=== PATIENT | female | born 1975 | race Hispanic/Latino ===

== ENCOUNTER 2016-07-25 06:31 | Emergency (ER) | payer OTHER ==
[~2016-07-25] VITALS: Ht 157.5 cm; Wt 92.7 kg
[~2016-07-25 06:31] MED LIST: ASPI-973 PO; CITA10TA14 PO; CITA10TA9 PO; CYCL10TA9 PO; GLYB2.5T4 PO; HYDR-4003 PO; HYDR50CA PO; INSU100V7 SUBQ; LISI-567 PO; LISI2.5T PO; METF500T4 PO; NAPR500T PO; NPR500T PO; ONDA8TAB10 PO; OXYC-474 PO; SIMV20TA4 PO; SIMV5TAB7 PO
--- NOTE | 2016-07-25 06:34 | ED.REPORT ---
HPI-Chest Pain 40 and Over Date of Service Jul 25, 2016 ED Provider: Dr. Mensah Patient is a 41 year old female with a hx of DM and HTN who reports to the ED complaining of chest pain onset 2 days ago. Patient had a URI two weeks ago which has led up to sudden onset non-productive cough and chest pain that has progressively worsened since. Pt rates pain at 7/10 severity located in the middle of her chest with no radiation. Pain is worse with inspiration and coughing and DayQuil helps to relieve symptoms. Pt c/o associates SOB and post nasal drip and has no history of GERD. Patient denies fever, chills, abdominal pain, vomiting, diaphoresis. Pt's child had influenza several weeks ago. Nursing Notes Stated Complaint: SOB/CHEST PAIN Nursing Notes Reviewed: Yes Allergies: Coded Allergies: No Known Allergies (Verified , 11/18/15) Scheduled Aspirin (Aspirin) 81 Mg Tablet 81 MG PO DAILY Citalopram (Citalopram) 10 Mg Tablet 10 MG PO DAILY Citalopram Hydrobromide (Celexa) Unknown Strength Tablet Unknown Dose PO DAILY Glyburide (Glyburide) Unknown Strength Tablet Unknown Dose PO BIDAC Glyburide (Glyburide) 2.5 Mg Tablet 2.5 MG PO BIDAC Insulin Glargine (Lantus U100 Insulin Vial) 100 Unit/Ml Vial 20 UNIT SUBQ HS Insulin Glargine (Lantus U100 Insulin Vial) 100 Unit/Ml Vial 20 UNIT SUBQ HS Lisinopril (Lisinopril) Unknown Strength Tablet Unknown Dose PO DAILY Lisinopril (Lisinopril) 20 Mg Tablet 20 MG PO DAILY Metformin (Metformin) 500 Mg Tablet 500 MG PO BID Metformin (Metformin) 500 Mg Tablet 500 MG PO BID Simvastatin (Simvastatin) Unknown Strength Tablet Unknown Dose PO HS Simvastatin (Simvastatin) 20 Mg Tablet 20 MG PO HS Scheduled PRN Benzonatate (Tessalon Perle) 100 Mg Capsule 100 MG PO TID PRN PRN For Cough Cyclobenzaprine (Cyclobenzaprine) 10 Mg Tablet 10 MG PO TID PRN PRN Spasm Hydrocodone-Acetaminophen 5-325 mg (Hydrocodone-Acetaminophen 5-325 mg) 1 Each Tablet 1 TABLET PO at night PRN PRN severe unrelenting pain Hydroxyzine Pamoate (Vistaril) 50 Mg Capsule 50 MG PO TID PRN PRN muscle relaxation Naproxen (Naprosyn) 500 Mg Tablet 500 MG PO BID PRN PRN For Pain Naproxen (Naproxen) 500 Mg Tab 500 MG PO BID PRN PRN For Pain Naproxen (Naproxen) 500 Mg Tab 500 MG PO BID PRN PRN For Pain Ondansetron ODT (Ondansetron ODT) 8 Mg Tab.rapdis 8 MG PO QID PRN PRN For Nausea Oxycodone (Roxicodone) 5 Mg Tablet 2.5-5 MG PO QID PRN PRN For Pain General Time Seen by MD: 06:33 Chief Complaint Chest pain Hx Obtained From: Patient Arrived By: Walk-in Sudden in Onset?: Yes Onset Occurred: 2 days ago Symptom Duration: Since onset Radiation: : Does not radiate Severity: Current: Mild Severity: Maximum: Mild Risk Factors PERC Rule Heart rate 100 or over PERC Result: One or more crit "Yes" Past Medical History Past Medical History Chronic cholecystitis Anxiety Depression Reports: Diabetes mellitus, GERD, Hyperlipidemia, Hypertension Past Surgical History Reports: , Cholecystectomy, Tonsillectomy Reports: Tubal ligation Family History Noncontributory Smoking History Never Smoker Social History Alcohol Use: Denies alcohol use Drug Use: Denies drug use Other Social History: Lives with children, Local resident 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 Ears / Nose / Throat: Reports: Nasal congestion Physical Exam Initial Vital Signs Vital Signs (First) Date Time Temp Pulse Resp B/P Pulse Ox O2 Delivery O2 Flow Rate FiO2 07/25/16 06:35 36.7 108 23 138/95 98 Room Air Initial VS: Reviewed Head / Eyes: Atraumatic, Normocephalic, PERRL ENT: Mucous membranes moist, Conjunctiva normal, No scleral icterus Neck: Supple, Non-tender, Full range of motion Skin: Warm, Dry, No cyanosis Neurologic: Alert, Oriented, Nonfocal Psychiatric: Mood/affect normal, Behavior normal, Normal thought content General/Constitutional: Awake, Alert Respiratory / Chest: Breath sounds NL, Breath sounds = bilat, No respiratory distress, No rales, No rhonchi, No wheezing focal sternal chest wall tenderness Cardiovascular: Heart rate NL, Regular rhythm, Heart sounds NL Abdomen: Atraumatic, Soft, Non-tender, No guarding, No rebound Interpretation & Diagnostics Negative for Influenza A & B Lab Results Interpretation Result Diagram: 07/25/16 0730 07/25/16 0730 Test 07/25/16 07:30 White Blood Count 8.9th/mm3 (3.8-10.1) Red Blood Count 4.56mil/mm3 (3.90-5.20) Hemoglobin 13.5g/dL (12.0-15.6) Hematocrit 39.0% (35.0-46.0) Mean Corpuscular Volume 85.5fL (81-100) Mean Corpuscular Hemoglobin 29.6pg (27.0-35.0) Mean Corpuscular Hemoglobin Concent 34.6% (32.0-37.0) Red Cell Distribution Width 12.8% (12.3-15.4) Platelet Count 370bil/L (150-400) Neutrophils (%) (Auto) 54.6% (40-74) Lymphocytes (%) (Auto) 37.9% (14-46) Monocytes (%) (Auto) 5.9% (4-12) Eosinophils (%) (Auto) 1.3% (0-5) Basophils (%) (Auto) 0.1% (0-3) D-Dimer < 0.5mg/L (<0.50) Sodium Level 138mEq/L (134-144) Potassium Level 4.2mEq/L (3.5-5.2) Chloride Level 100mEq/L (97-108) Carbon Dioxide Level 24mmol/L (18-29) Blood Urea Nitrogen 8mg/dL (6-24) Creatinine 0.33mg/dL (0.57-1.00) Estimat Glomerular Filtration Rate 315mL/min (>59) Glucose Level 316mg/dL (60-99) Calcium Level 8.6mg/dL (8.5-10.1) Magnesium Level 1.8mg/dL (1.6-2.6) Total Bilirubin 0.4mg/dL (0.0-1.2) Aspartate Amino Transf (AST/SGOT) 14U/L (0-50) Alanine Aminotransferase (ALT/SGPT) 14U/L (0-32) Alkaline Phosphatase 71U/L (25-150) Troponin T < 0.010ug/L (0.0-0.011) Total Protein 6.7g/dL (6.4-8.4) Albumin 3.7g/dL (3.4-5.0) ECG Interpretation Time: 06:40 Interpreted by: ED physician Normal ECG Interpretation: Normal sinus rhythm (88) X-Ray Chest Interpretation Chest Xray Interpretation: IMPRESSION: No acute process. Dictated by: Mely Lange M.D. on 07/25/2016 at 8:26 Approved by: Mely Lange M.D. on 07/25/2016 at 8:26 View: Portable Interpretation / Wet Read by: Interpret - Radiologist Re-Eval/Medical Decision Med Decision/Clinical Course Overall findings not consistent with acute coronary syndrome or pulmonary embolism, patient is given symptomatically relief and will be discharged with return precautions. Time of Eval: 09:10 Re-Evaluation/Progress Note: Pt rechecked. Informed pt of diagnosis of acute costochondritis and plan for treatment. Pt understands and agrees with plan. F/U and RTER warnings given. All questions addressed. Counseled Regarding: Diagnosis, Lab results, Need for follow-up, When/why to return to ED Discharge & Departure Primary Impression: Acute costochondritis Disposition: Home Discharge Condition All VS Reviewed: Yes Condition: Stable Additional Instructions: Thank you for entrusting us with your care today. You were diagnosed with acute costochondritis. You will be discharged with Naproxen for pain and tessalon perles for cough. You may also purchase an over the counter cough suppressant to aid with your symptoms. Please follow up with your primary care provider should your symptoms persist. It has been a pleasure participating in your care. Referrals: Shanon Johnson MD (PCP) Scribe Attestation Portion of this note were transcribed by Sandy Guillaume and Ami Berger. I, Dr. Mensah personally performed the history, physcial exam, and medical decision- making: I reviewed and confirmed the accuracy for the information in the transcribed note. Signed by: aldo Rodriguez, 07/18/16 0915 copies to: Shanon Johnson MD, Timothy S DO Jul 25, 2016 06:34 AMI BERGER Jul 25, 2016 07:15 Sandy Guillaume Jul 25, 2016 09:12
[2016-07-25 06:35] VITALS: BP 138/95; PULSE 108; RESP 23; O2SAT 98
[2016-07-25] MEDS ORDERED: Ketorolac 15 mg/mL Inj IVPUSH ONE (07:00)
[2016-07-25] MEDS ORDERED: HYDROcodone-APAP 5-325 mg Tablet PO ONE (07:00)
[2016-07-25 07:40] VITALS: BP 119/77; PULSE 87; RESP 22; O2SAT 94
[2016-07-25 07:52] LABS: BASOPHILS % (AUTO) 0.1 % (0-3); EOSINOPHILS % (AUTO) 1.3 % (0-5); MONOCYTES % (AUTO) 5.9 % (4-12); Mean Corpuscular Hemoglobin 29.6 pg (27.0-35.0); Mean Corpuscular Volume 85.5 fL (81-100); NEUTROPHILS % (AUTO) 54.6 % (40-74); Platelet Count 370 bil/L (150-400)
[2016-07-25 08:15] VITALS: BP 120/73; PULSE 89; RESP 13; O2SAT 93
[2016-07-25 08:26] LABS: Magnesium 1.8 mg/dL (1.6-2.6)
[2016-07-25 08:27] LABS: TROPONIN T < 0.010 ug/L (0.0-0.011)
--- NOTE | 2016-07-25 08:28 | DRSVH ---
PROCEDURE: X-RAY CHEST, TWO VIEWS ([id number]) INDICATIONS: cough, chest pain TECHNIQUE: 2 views of the chest were acquired. COMPARISON: [facility], CR, XR ABD ACUTE SERIES 3VW, 08/20/2015, 21:10. [facility], CR, CHEST 2VW, 12/10/2012, 21:40. [facility], CR, CHEST 2VW, 09/25/2006, 22:01. FINDINGS: Surgical changes and devices: None. Lungs and pleura: No pleural effusions or pneumothorax. Lungs are clear. Mediastinum: Mediastinal contours are normal. Heart size is normal. Bones and chest wall: No suspicious bony abnormalities. Soft tissues appear unremarkable. IMPRESSION: No acute process. Dictated by: Mely Lange M.D. on 07/25/2016 at 8:26 Approved by: Mely Lange M.D. on 07/25/2016 at 8:26
[2016-07-25] MEDS ORDERED: NPR500T PO (09:07)
[2016-07-25] MEDS ORDERED: BENZ-12 PO (09:07)
[2016-07-25 09:28] VITALS: BP 119/76; PULSE 96; RESP 14; O2SAT 94
[2016-07-25 09:30] VITALS: BP 119/76; PULSE 96; RESP 14; O2SAT 94
== END 2016-07-25 09:30 | disposition home or self-care (01) ==
LOC: SED 06:31
DX: M94.0 Chondrocostal junction syndrome [Tietze] (principal); I10 Essential (primary) hypertension; K21.9 Gastro-esophageal reflux disease without esophagitis; E78.5 Hyperlipidemia, unspecified; E11.9 Type 2 diabetes mellitus without complications; Z90.49 Acquired absence of other specified parts of digestive tract; Z79.82 Long term (current) use of aspirin; Z79.84 Long term (current) use of oral hypoglycemic drugs; Z79.4 Long term (current) use of insulin
CPT/HCPCS: 36415; 71020; 80053; 82948; 83735; 84484; 85025; 85379; 87804; 90791; 93005; 96374; 99285; J1885

== ENCOUNTER 2017-02-07 03:32 | Emergency (ER) | payer OTHER ==
[~2017-02-07] VITALS: Ht 157.5 cm; Wt 92.7 kg
[~2017-02-07 03:32] MED LIST changes: +BENZ-12 PO
[2017-02-07 03:38] VITALS: BP 121/87; PULSE 90; RESP 22; O2SAT 96
--- NOTE | 2017-02-07 03:50 | ED.REPORT ---
HPI-Extremity Problem Lower Date of Service Feb 07, 2017 ED Provider: Dr. 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 Pt is able to bend and flex the toe. Pain is exacerbated by movement. She is utd on her tetanus shot. Nursing Notes Stated Complaint: LEFT FOOT PAIN Chief Complaint: Laceration Nursing Notes Reviewed: Yes Allergies: Coded Allergies: No Known Allergies (Verified , 11/18/15) Scheduled Aspirin (Aspirin) 81 Mg Tablet 81 MG PO DAILY Citalopram (Citalopram) 10 Mg Tablet 10 MG PO DAILY Citalopram Hydrobromide (Celexa) Unknown Strength Tablet Unknown Dose PO DAILY Glyburide (Glyburide) Unknown Strength Tablet Unknown Dose PO BIDAC Glyburide (Glyburide) 2.5 Mg Tablet 2.5 MG PO BIDAC Insulin Glargine (Lantus U100 Insulin Vial) 100 Unit/Ml Vial 20 UNIT SUBQ HS Insulin Glargine (Lantus U100 Insulin Vial) 100 Unit/Ml Vial 20 UNIT SUBQ HS Lisinopril (Lisinopril) Unknown Strength Tablet Unknown Dose PO DAILY Lisinopril (Lisinopril) 20 Mg Tablet 20 MG PO DAILY Metformin (Metformin) 500 Mg Tablet 500 MG PO BID Metformin (Metformin) 500 Mg Tablet 500 MG PO BID Simvastatin (Simvastatin) Unknown Strength Tablet Unknown Dose PO HS Simvastatin (Simvastatin) 20 Mg Tablet 20 MG PO HS Scheduled PRN Benzonatate (Tessalon Perle) 100 Mg Capsule 100 MG PO TID PRN PRN For Cough Cyclobenzaprine (Cyclobenzaprine) 10 Mg Tablet 10 MG PO TID PRN PRN Spasm Hydrocodone-Acetaminophen 5-325 mg (Hydrocodone-Acetaminophen 5-325 mg) 1 Each Tablet 1 TABLET PO at night PRN PRN severe unrelenting pain Hydroxyzine Pamoate (Vistaril) 50 Mg Capsule 50 MG PO TID PRN PRN muscle relaxation Naproxen (Naprosyn) 500 Mg Tablet 500 MG PO BID PRN PRN For Pain Naproxen (Naproxen) 500 Mg Tab 500 MG PO BID PRN PRN For Pain Naproxen (Naproxen) 500 Mg Tab 500 MG PO BID PRN PRN For Pain Ondansetron ODT (Ondansetron ODT) 8 Mg Tab.rapdis 8 MG PO QID PRN PRN For Nausea Oxycodone (Roxicodone) 5 Mg Tablet 2.5-5 MG PO QID PRN PRN For Pain General Time Seen by MD: 03:50 Chief Complaint Toe injury left 5 Hx Obtained From: Patient Arrived By: Walk-in Onset Occurred: Just prior to arrival Symptom Duration: Since onset Caused by: Accidental Location: : Toe left 5 Quality: Painful Severity: Current: Mild Associated with: Reports: Bleeding Pertinent Negative: Pt denies other symptoms Exacerbated by: Movement Recent Healthcare: No recent doctor visit, No recent hospitalization Similar Sx Previous: No Past Medical History Past Medical History Chronic cholecystitis Anxiety Depression Reports: Diabetes mellitus, GERD, Hyperlipidemia, Hypertension Past Surgical History Reports: , Cholecystectomy, Tonsillectomy Reports: Tubal ligation Family History Noncontributory Smoking History Never Smoker Social History Alcohol Use: Denies alcohol use Drug Use: Denies drug use Other Social History: Lives with children, Local resident 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 GI: Denies: Nausea, Vomiting Hematologic: Reports Bleeding (laceration) Physical Exam Initial Vital Signs Vital Signs (First) Date Time Temp Pulse Resp B/P Pulse Ox O2 Delivery O2 Flow Rate FiO2 02/07/17 03:38 36.2 90 22 121/87 96 Room Air Initial VS: Reviewed Lower Extremity / Pelvis / MS: Full range of motion, No deformity Toe Exam : Toe Exam: Positive: Tenderness present..., Toe name... (L fifth) Trauma / Burn / Environmental: Positive: Laceration 1cm linear laceration axially oriented on the left little toe pt is able to extend the toe neurovascularly intact no tendon involvement General/Constitutional: Awake, Alert, Cooperative Skin: Atraumatic, Color NL, No rash Neurologic: Oriented X3, Speech NL, No motor deficits, No sensory deficits Head / Eyes: Atraumatic, Normocephalic, PERRL Upper Extremity / MS: Atraumatic, Full range of motion, No deformity Wrist / Hand: Atraumatic, Full range of motion, No deformity Procedures Laceration Management Time: 04:41 Procedure Performed by: ED physician Consent / Setup / Site Prep: Consent from patient, Hand hygiene observed, Stand sterile technique Location of Wound: 1cm linear laceration axially oriented on the left little toe Wound Length: 1 cm Local Anesthesia: Lidocaine 1% Digit Involved: 5th toe left Wound Preparation: Hibiclens - Chlorhexidine Debridement: None Irrigation: 50 cc Foreign Body Explore / Removal: Explored for foreign body Repair Skin: ___ O (4), Nylon # Sutures - Skin: 4 Suture Technique: Simple Post-Procedure / Complications: Antibiotic oint applied, Dressing applied, No complications, Condition improved, Tolerated procedure well, Patient stable Re-Eval/Medical Decision Med Decision/Clinical Course 41-year-old female with diabetes sustained a small coronary dorsal fifth toe left foot after dropping a knife in the kitchen. This was repaired as detailed above. No neurovascular or tendinous structures involved. Hemostatic and well approximated after repair. Sutures out in nine days. Prompt return if any signs of infection. Re-Evaluation/Progress : Time of Eval: 04:39 Re-Evaluation/Progress Note: Laceration management performed. Pt tolerated procedure well. Counseled Regarding: Diagnosis, Lab results, Need for follow-up, When/why to return to ED Discharge & Departure Impression: Primary Impression: Laceration Additional Impression: Diabetes Diabetes mellitus type: type 2 Diabetes mellitus complication status: without complication Diabetes mellitus partition notcher insulin use: unspecified partition notcher insulin use status Qualified Code: E11.9 - Type 2 diabetes mellitus without complications Disposition: Home Discharge Condition All VS Reviewed: Yes Condition: Stable Patient Instructions: Laceration (ED) Additional Instructions: Thank you for entrusting us with your care today. Keep the wound clean and dry. Apply Bacitracin cream 4x/day. Come back to the Emergency Room in 9 days to have your stitches removed. Use Tylenol and Ibuprofen as needed for pain. Follow up with your primary care physician in the next week for further evaluation. Return to the Emergency Department if you experience any new or worsening symptoms including any signs of infection such as redness, warmth, swelling, discharge, fever or chills. Referrals: Tete Walden (PCP) Scribe Attestation Portion of this note were transcribed by Yessi Berger. IDr. Barajas, personally performed the history, physical exam, and medical decision-making: I reviewed and confirmed the accuracy for the information in the transcribed note. Signed by: aldo Rodriguez, 02/07/17 0600 copies to: Tete Walden Christopher W MD Feb 07, 2017 03:50 Yessi Berger Feb 07, 2017 04:33
== END 2017-02-07 04:51 | disposition home or self-care (01) ==
LOC: SED 03:32
DX: S91.115A Laceration without foreign body of left lesser toe(s) without damage to nail, initial encounter (principal); W26.0XXA Contact with knife, initial encounter; Y93.89 Activity, other specified; Y92.89 Other specified places as the place of occurrence of the external cause; Y99.8 Other external cause status; I10 Essential (primary) hypertension; E11.9 Type 2 diabetes mellitus without complications; E78.5 Hyperlipidemia, unspecified; F41.8 Other specified anxiety disorders; K21.9 Gastro-esophageal reflux disease without esophagitis; Z79.82 Long term (current) use of aspirin; Z79.4 Long term (current) use of insulin; Z79.01 Long term (current) use of anticoagulants; Z79.84 Long term (current) use of oral hypoglycemic drugs

== ENCOUNTER 2017-02-16 19:03 | Emergency (ER) | payer OTHER ==
[~2017-02-16] VITALS: Ht 157.5 cm; Wt 92.7 kg
[2017-02-16 19:16] VITALS: BP 121/82; PULSE 101; RESP 20; O2SAT 96
== END 2017-02-16 19:29 | disposition home or self-care (01) ==
LOC: SED 19:03
DX: Z48.02 Encounter for removal of sutures (principal)